=== PATIENT | female | born 1995 | race Caucasian/White ===

== ENCOUNTER 2020-05-27 10:22 | Emergency (ER) | payer OTHER ==
[~2020-05-27] VITALS: Ht 157.5 cm; Wt 64.4 kg
[2020-05-27 10:23] VITALS: Ht 157.5 cm; Wt 64.4 kg
[2020-05-27 12:58] VITALS: BP 154/83
== END 2020-05-27 12:58 | disposition home or self-care (01) ==
LOC: ED 10:22
DX: K04.7 Periapical abscess without sinus (principal)
CPT/HCPCS: J2001